=== PATIENT | female | born 1945 | race Caucasian/White ===

== ENCOUNTER 2018-10-16 15:24 | Emergency (ER) | payer MEDICARE, BC ==
[~2018-10-16] VITALS: Ht 162.6 cm; Wt 79.6 kg
[2018-10-16 15:33] VITALS: BP 138/59
[2018-10-16] MEDS ORDERED: dexamethasone sod phosphate 10mg/ml inj PO STA (16:39)
[2018-10-16] MEDS ORDERED: AMOX-422 PO (16:41)
[2018-10-16] MEDS ORDERED: ERYT1OIN6 RIGHTEYE (16:45)
== END 2018-10-16 17:12 | disposition home or self-care (01) ==
LOC: ER 15:26
DX: J32.9 Chronic sinusitis, unspecified (principal); H10.9 Unspecified conjunctivitis
CPT/HCPCS: 99283; J1100